=== PATIENT | female | born 1950 | race Caucasian/White ===

== ENCOUNTER 2016-06-23 11:51 | Emergency (ER) | payer MEDICARE, MEDICAID ==
[~2016-06-23] VITALS: Ht 157.5 cm; Wt 95.5 kg
[~2016-06-23 11:51] MED LIST: ALBU8.5H4 IH; ASPI-973 PO; BUDE0.5A2 IH; BUSP10TA2 PO; CLOB15CR3 TOP; DILT300C35 PO; FENO145T19 PO; FLUT9.9S NS; GABA300C PO; GLBR5T PO; IPRA3AMP IH; KEN25CR EXT; LEVO50TA39 PO; LOVA40TA PO; METH10TA2 PO; MONT10TA20 PO; OXYB10TA PO; PANT40TA2 PO; POTA10CA42 PO; PRE10 PO; PRE20 PO; PROP20TA5 PO; QUET25TA PO; ROPI2TAB2 PO; TIZA4CAP8 PO; TRAM50TA2 PO; VALA500T2 PO; VENL75CA PO
[2016-06-23 12:04] VITALS: BP 126/92; PULSE 109; RESP 19; O2SAT 94
--- NOTE | 2016-06-23 12:14 | ED.REPORT ---
HPI-Abd Pain F 40 and Over Date of Service Jun 23, 2016 ED Provider: The patient is a 66 year old female with history of COPD, diabetes mellitus type II, hypertension, morbid obesity, dyslipidemia, who was brought to the emergency department by EMS for diarrhea that began last night. Her last episode of diarrhea was prior to arrival. She also complains of acid reflux, nausea, and vomiting. She was recently started on Cephalexin for bronchitis and to prevent infection from a recent toenail procedure. She denies fever, chills, chest pain, shortness of breath or cough. She denies history of clostridium difficile. Nursing Notes Stated Complaint: DIARRHEA Chief Complaint: General Complaint Nursing Notes Reviewed: Yes Allergies: Coded Allergies: TAPE (Verified Allergy, Severe, BLISTERS, 04/02/15) zafirlukast (Verified Allergy, Severe, UNCONFIRMED, 04/02/15) Penicillins (Verified Allergy, Unknown, OK WITH CEPHALOSPORINS, 04/02/15) codeine (Verified Allergy, Unknown, 04/02/15) fluticasone (Verified Allergy, Unknown, 04/02/15) lisinopril (Verified Allergy, Unknown, 04/02/15) Scheduled Aspirin (Aspirin) 81 Mg Tablet 81 MG PO DAILY Budesonide Neb Soln (Budesonide Neb Soln) 0.5 Mg/2 Ml Ampul.neb 0.5 MG IH BID Buspirone (Buspirone) 10 Mg Tablet 10 MG PO DAILY Diltiazem ER (Cardizem CD) 300 Mg Cap.er.24h 300 MG PO DAILY Fenofibrate Nanocrystallized (Fenofibrate) 145 Mg Tablet 145 MG PO DAILY Gabapentin (Neurontin) 300 Mg Capsule 300 MG PO BID Glyburide (Glyburide) 5 Mg Tab 5 MG PO BIDAC Ipratropium/Albuterol Sulfate (Iprat-Albut 0.5-3(2.5) mg/3 mL Inhalant Soln) 3 Ml Ampul.neb 3 ML IH QID Levothyroxine (Levoxyl) 50 Mcg Tablet 50 MCG PO DAILY Lovastatin (Lovastatin) 40 Mg Tablet 40 MG PO HS Methylphenidate (Ritalin) 10 Mg Tablet 10 MG PO BID Montelukast (Singulair) 10 Mg Tablet 10 MG PO HS Oxybutynin Chloride ER (Oxybutynin Chloride ER) 10 Mg Tab.er.24 10 MG PO DAILY Pantoprazole DR (Protonix) 40 Mg Tablet 40 MG PO DAILY Potassium Chloride (Potassium Chloride) 10 Meq Capsule.er 10 MEQ PO DAILY TAKE WITH FOOD Prednisone (PredniSONE) 10 Mg Tablet 10 MG PO every other day Prednisone (PredniSONE) 20 Mg Tablet 20 MG PO DAILY Propranolol HCl (Propranolol HCl) 20 Mg Tablet 20 MG PO BID Quetiapine Fumarate (Seroquel) 25 Mg Tablet 50 MG PO HS Ropinirole (Requip) 2 Mg Tablet 1-2 MG PO HS Tizanidine (Tizanidine) 4 Mg Capsule 4 MG PO TID Tramadol (Tramadol) 50 Mg Tablet 100 MG PO BID Triamcinolone Acet (Triamcinolone Acetonide Cream) 1 Applic/0.25 Gm Cr 1 APPLIC EXT BID Valacyclovir HCl (Valtrex) 500 Mg Tablet 500 MG PO DAILY Venlafaxine ER (Effexor XR) 75 Mg Cap.er.24h 75 MG PO TID Scheduled PRN Albuterol HFA (Albuterol HFA) 8.5 Gm Hfa.aer.ad 1-2 PUFF IH Q4 PRN PRN For Shortness of Breath Clobetasol Propionate/Emoll (Clobetasol Emollient 0.05% Crm) 15 Gm Cream..g. 1 APPL TOP BID PRN PRN rash Miscellaneous Medications Fluticasone Propionate (Flonase Allergy Relief) 50 Mcg/Actuation [place].susp 9.9 ML NS General Time Seen by MD: 12:13 Chief Complaint Diarrhea moderate Hx Obtained From: Patient, EMS Arrived By: Ambulance Sudden in Onset?: Yes Onset Occurred: Yesterday Symptom Duration: Since onset Progression since Onset: Intermittent Location: : Diffuse Quality: Painful Radiation: : Does not radiate Severity: Current: Mild Severity: Maximum: Moderate Recent Healthcare: No recent hospitalization, Recent doctor visit Similar Sx Previous: No Past Medical History Past Medical History 1. 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 2. Diabetes mellitus Type 2 with diabetic neuropathy--not requiring insulin 3. Hypertension 4. Morbid obesity with BMI 38.1 5. History of aspiration pneumonia 6. Chronic gastritis 7. Dyslipidemia 8. Depression & anxiety 9. History kidney stones 10. Hospitalization in August due to acute hypoxemic respiratory failure. 11. Obstructive sleep apnea on CPAP 12. Idiopathic tremors 13. Small bowel obstruction 14. Acquired cognitive dysfunction 15. Depression and insomnia Past Surgical History 1. Total hysterectomy and bilateral oophorectomy 2. Right Hip replacement, 3. Cholecystectomy 4. Tonsillectomy 5. Thyroidectomy Smoking History Never Smoker Social History Alcohol Use: Denies alcohol use Drug Use: Denies drug use Other Social History: Local resident Review of Systems +acid reflux Constitutional: Denies: Chills, Fever Respiratory: Denies: Non-productive cough, Shortness of breath Cardiovascular: Denies: Chest pain GI: Reports: Abdominal pain, Diarrhea, Nausea, Vomiting Complete sys rev & neg: except as marked. Physical Exam Vital Signs Vital Signs (First) Date Time Temp Pulse Resp B/P Pulse Ox O2 Delivery O2 Flow Rate FiO2 06/23/16 12:04 36.9 109 19 126/92 94 Room Air Initial VS: Reviewed Head / Eyes: Atraumatic, Normocephalic, PERRL ENT: Mucous membranes moist, Conjunctiva normal, No scleral icterus Neck: Supple, Non-tender, Full range of motion Lymphatic: No lymphadenopathy Extremities: Vascular intact, Neuro intact, No swelling, No tenderness Skin: Warm, Dry, No cyanosis Neurologic: Alert, Oriented, Nonfocal Psychiatric: Mood/affect normal, Behavior normal, Normal thought content General/Constitutional: Awake, Alert Respiratory / Chest: Breath sounds = bilat, No respiratory distress, No rales, No rhonchi, No wheezing, No stridor Diminished Breath Sounds: Positive: Decreased bilateral Cardiovascular: Heart rate NL, Regular rhythm, Heart sounds NL, Peripheral circulation NL Abdomen: Atraumatic, Soft, Non-tender, McBurney's non-tender, No guarding, No rebound, BS normoactive, No distention, No hernia, No palpable mass, No pulsatile mass Back: Inspection NL, Full range of motion, Painless range of motion Interpretation & Diagnostics Lab Results Interpretation Result Diagram: 06/23/16 1325 06/23/16 1325 Test 06/23/16 13:25 White Blood Count 8.4th/mm3 (3.8-10.1) Red Blood Count 5.12mil/mm3 (3.90-5.20) Hemoglobin 15.2g/dL (12.0-15.6) Hematocrit 46.6% (35.0-46.0) Mean Corpuscular Volume 91.0fL (81-100) Mean Corpuscular Hemoglobin 29.7pg (27.0-35.0) Mean Corpuscular Hemoglobin Concent 32.6% (32.0-37.0) Red Cell Distribution Width 13.6% (12.3-15.4) Platelet Count 232bil/L (150-400) Neutrophils (%) (Auto) 84.5% (40-74) Lymphocytes (%) (Auto) 6.7% (14-46) Monocytes (%) (Auto) 6.8% (4-12) Eosinophils (%) (Auto) 1.5% (0-5) Basophils (%) (Auto) 0.1% (0-3) Sodium Level 137mEq/L (134-144) Potassium Level 3.5mEq/L (3.5-5.2) Chloride Level 97mEq/L (97-108) Carbon Dioxide Level 27mmol/L (18-29) Blood Urea Nitrogen 30mg/dL (8-27) Creatinine 0.76mg/dL (0.57-1.00) Estimat Glomerular Filtration Rate 109mL/min (>59) Glucose Level 252mg/dL (60-99) Calcium Level 8.2mg/dL (8.5-10.1) Total Bilirubin 1.6mg/dL (0.0-1.2) Aspartate Amino Transf (AST/SGOT) 145U/L (0-50) Alanine Aminotransferase (ALT/SGPT) 70U/L (0-32) Alkaline Phosphatase 61U/L (25-165) Total Protein 6.2g/dL (6.4-8.4) Albumin 3.5g/dL (3.4-5.0) Re-Eval/Medical Decision Med Decision/Clinical Course Laboratory data and vital signs commenced. With volume depletion. This is also consistent with her history of vomiting and diarrhea. She has had no vomiting nor diarrhea while in the emergency department. I am concerned of the possibility of C. difficile colitis given the recent antibiotics. I recommended close outpatient follow-up. Outpatient order for C. difficile is sent with the patient and materials to collect a specimen. I told her to continue her cephalexin for now because her understanding is that she is taking it for a respiratory based infection. Source of Hx: Old records, EMS, Family Re-Evaluation/Progress : Time of Eval: 14:04 Re-Evaluation/Progress Note: Rechecked the patient. Discussed results, diagnosis, and plan for discharge. All questions were addressed. Counseled Regarding: Diagnosis, Lab results, Need for follow-up, When/why to return to ED Discharge & Departure Primary Impression: Diarrhea Additional Impressions: Dehydration Vomiting Vomiting type: unspecified Vomiting Intractability: non-intractable Nausea presence: with nausea Qualified Code: R11.2 - Nausea with vomiting, unspecified Disposition: Home Discharge Condition All VS Reviewed: Yes Condition: Stable Patient Instructions: Acute Diarrhea (ED), Acute Nausea and Vomiting (ED), Dehydration (ED) Additional Instructions: Thank you for entrusting us with your care today. You have modest laboratory abnormalities that need to be rechecked in a few days. We have sent you home with the materials to collect a stool sample. Bring this back to the lab when you have provided a sample. Use Zofran as needed for nausea. Make sure to drink plenty of fluids as tolerated. Continue the cephalexin as previously prescribed. Followup with your regular doctor next week for recheck. Return to the emergency department for any new or concerning symptoms. Referrals: Margaret Gilbert (PCP) Lawrence Attestation Portions of this note were transcribed by Porsche Mckeon. I, Dr. Khadar Felix personally performed the history, physical exam and medical decision-making; I reviewed and confirmed the accuracy of the information in the transcribed note. Signed by: Lawrence Mas, 06/23/2015 and 1415. copies to: Margaret Gilbert Kirk H MD Jun 23, 2016 12:13 Porsche Mckeon Jun 23, 2016 12:18
[2016-06-23] MEDS ORDERED: Pantoprazole 4 mg/mL 10 mL Inj IVPUSH ONE (12:20)
[2016-06-23] MEDS ORDERED: 0.9% Sodium Chloride 1,000 ML IV ONE (12:20)
[2016-06-23 13:48] LABS: BASOPHILS % (AUTO) 0.1 % (0-3); EOSINOPHILS % (AUTO) 1.5 % (0-5); MONOCYTES % (AUTO) 6.8 % (4-12); Mean Corpuscular Hemoglobin 29.7 pg (27.0-35.0); NEUTROPHILS % (AUTO) 84.5 % (40-74); Platelet Count 232 bil/L (150-400)
[2016-06-23 14:01] VITALS: PULSE 109; RESP 26; O2SAT 94
[2016-06-23] MEDS ORDERED: ONDA4TAB9 PO (14:17)
[2016-06-23 14:48] VITALS: BP 136/88; PULSE 105; RESP 14; O2SAT 94
[2016-06-23 15:20] VITALS: BP 136/88; PULSE 105; RESP 14; O2SAT 94
== END 2016-06-23 15:22 | disposition home or self-care (01) ==
LOC: SED 11:51
DX: R19.7 Diarrhea, unspecified (principal); E86.0 Dehydration; R11.2 Nausea with vomiting, unspecified; J44.9 Chronic obstructive pulmonary disease, unspecified; I10 Essential (primary) hypertension; E11.40 Type 2 diabetes mellitus with diabetic neuropathy, unspecified; Z79.82 Long term (current) use of aspirin; Z88.0 Allergy status to penicillin; Z88.5 Allergy status to narcotic agent; Z88.8 Allergy status to other drugs, medicaments and biological substances
CPT/HCPCS: 36415; 80053; 85025; 96361; 96374; 99284; J7030

== ENCOUNTER 2017-02-16 10:00 | Emergency (ER) | payer MEDICARE, MEDICAID ==
[~2017-02-16] VITALS: Ht 154.9 cm; Wt 97.7 kg
[~2017-02-16 10:00] MED LIST changes: +ONDA4TAB9 PO
--- NOTE | 2017-02-16 10:01 | ED.REPORT ---
HPI-General Illness Date of Service Feb 16, 2017 ED Provider: Dr. Amador The pt is a 66 y/o female with a hx of COPD, diabetes mellitus type II, hypertension, and dyslipidemia who presents to the ED complaining of hyperglycemia, onset today. She called her PCP's office and was advised to call and go to the ED. Associated sx include increased urination, fatigue, somnolence (which has now resolved). She also reports a gradually improving abscess on her right forearm. She denies abdominal pain, vomiting, diarrhea, and dysuria. Nursing Notes Stated Complaint: SLEEPY Nursing Notes Reviewed: Yes Allergies: Coded Allergies: TAPE (Verified Allergy, Severe, BLISTERS, 02/16/17) zafirlukast (Verified Allergy, Severe, UNCONFIRMED, 02/16/17) Penicillins (Verified Allergy, Unknown, OK WITH CEPHALOSPORINS, 02/16/17) codeine (Verified Allergy, Unknown, 02/16/17) fluticasone (Verified Allergy, Unknown, 02/16/17) lisinopril (Verified Allergy, Unknown, 02/16/17) Scheduled Aspirin (Aspirin) 81 Mg Tablet 81 MG PO DAILY Budesonide Neb Soln (Budesonide Neb Soln) 0.5 Mg/2 Ml Ampul.neb 0.5 MG IH BID Buspirone (Buspirone) 10 Mg Tablet 10 MG PO DAILY Diltiazem ER (Cardizem CD) 300 Mg Cap.er.24h 300 MG PO DAILY Fenofibrate Nanocrystallized (Fenofibrate) 145 Mg Tablet 145 MG PO DAILY Gabapentin (Neurontin) 300 Mg Capsule 300 MG PO BID Glyburide (Glyburide) 5 Mg Tab 5 MG PO BIDAC Ipratropium/Albuterol Sulfate (Iprat-Albut 0.5-3(2.5) mg/3 mL Inhalant Soln) 3 Ml Ampul.neb 3 ML IH QID Levothyroxine (Levoxyl) 50 Mcg Tablet 50 MCG PO DAILY Lovastatin (Lovastatin) 40 Mg Tablet 40 MG PO HS Methylphenidate (Ritalin) 10 Mg Tablet 10 MG PO BID Montelukast (Singulair) 10 Mg Tablet 10 MG PO HS Oxybutynin Chloride ER (Oxybutynin Chloride ER) 10 Mg Tab.er.24 10 MG PO DAILY Pantoprazole DR (Protonix) 40 Mg Tablet 40 MG PO DAILY Potassium Chloride (Potassium Chloride) 10 Meq Capsule.er 10 MEQ PO DAILY TAKE WITH FOOD Prednisone (PredniSONE) 10 Mg Tablet 10 MG PO every other day Prednisone (PredniSONE) 20 Mg Tablet 20 MG PO DAILY Propranolol HCl (Propranolol HCl) 20 Mg Tablet 20 MG PO BID Quetiapine Fumarate (Seroquel) 25 Mg Tablet 50 MG PO HS Ropinirole (Requip) 2 Mg Tablet 1-2 MG PO HS Tizanidine (Tizanidine) 4 Mg Capsule 4 MG PO TID Tramadol (Tramadol) 50 Mg Tablet 100 MG PO BID Triamcinolone Acet (Triamcinolone Acetonide Cream) 1 Applic/0.25 Gm Cr 1 APPLIC EXT BID Valacyclovir HCl (Valtrex) 500 Mg Tablet 500 MG PO DAILY Venlafaxine ER (Effexor XR) 75 Mg Cap.er.24h 75 MG PO TID Scheduled PRN Albuterol HFA (Albuterol HFA) 8.5 Gm Hfa.aer.ad 1-2 PUFF IH Q4 PRN PRN For Shortness of Breath Clobetasol Propionate/Emoll (Clobetasol Emollient 0.05% Crm) 15 Gm Cream..g. 1 APPL TOP BID PRN PRN rash Ondansetron ODT (Zofran ODT) 4 Mg Tablet 4 MG PO Q4H PRN PRN For Nausea Miscellaneous Medications Fluticasone Propionate (Flonase Allergy Relief) 50 Mcg/Actuation [place].susp 9.9 ML NS General Time Seen by MD: 10:01 Chief Complaint Other (hyperglycemia) Hx Obtained From: Patient Arrived By: Ambulance Sudden in Onset?: Yes Onset Occurred: 1 - 4 hours ago Symptom Duration: Since onset Severity: Current: No pain currently Severity: Maximum: No pain Recent Healthcare: No recent doctor visit Past Medical History Past Medical History 1. 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 2. Diabetes mellitus Type 2 with diabetic neuropathy--not requiring insulin 3. Hypertension 4. Morbid obesity with BMI 38.1 5. History of aspiration pneumonia 6. Chronic gastritis 7. Dyslipidemia 8. Depression & anxiety 9. History kidney stones 10. Hospitalization in August due to acute hypoxemic respiratory failure. 11. Obstructive sleep apnea on CPAP 12. Idiopathic tremors 13. Small bowel obstruction 14. Acquired cognitive dysfunction 15. Depression and insomnia Past Surgical History 1. Total hysterectomy and bilateral oophorectomy 2. Right Hip replacement, 3. Cholecystectomy 4. Tonsillectomy 5. Thyroidectomy Smoking History Never Smoker Social History Alcohol Use: Denies alcohol use Drug Use: Denies drug use Other Social History: Local resident Review of Systems Reports: hyperglycemia Reports: somnolence (resolved) Reports: abscess on her right forearm Full Review of Systems Constitutional: Reports: Fatigue GI: Denies: Abdominal pain, Diarrhea, Vomiting Female: Reports: Urination increased, Denies: Dysuria Complete sys rev & neg: except as marked. Physical Exam Vital Signs Vital Signs Date Time Temp Pulse Resp B/P Pulse Ox O2 Delivery O2 Flow Rate FiO2 02/16/17 13:15 36.7 80 16 152/87 96 Room Air 02/16/17 11:22 36.7 81 20 147/87 97 Room Air 02/16/17 10:03 36.6 81 16 133/92 95 Room Air Initial VS: Reviewed Head / Eyes: Atraumatic, Normocephalic Neck: Supple, Non-tender, Full range of motion Abdomen / GI: Soft, Non-tender, No guarding, No rebound, No distention Extremities: Vascular intact, Neuro intact, No swelling, No tenderness Skin: Warm, Dry, No cyanosis Neurologic: Alert, Oriented, Nonfocal General/Constitutional: Awake, Alert, No acute distress, Cooperative Appearance / Presentation: Positive: Obese Respiratory / Chest: Atraumatic, No rales, No rhonchi, No wheezing Diminished Breath Sounds: Positive: Decreased bilateral Cardiovascular: Heart rate NL, Regular rhythm, Heart sounds NL, No gallop, No murmurs, No rubs No lower extremity edema Interpretation & Diagnostics Lab Results Interpretation Result Diagram: 02/16/17 1012 02/16/17 1012 Test 02/16/17 10:00 02/16/17 10:12 02/16/17 12:00 Urine Color Yellow (YELLOW) Urine Appearance Hazy (CLEAR,HAZY) Urine pH 5.5 (5.0-8.0) Urine Specific [place] 1.020 (1.003-1.035) Urine Protein Negativemg/dL (NEG,TRACE) Urine Glucose (UA) 1000mg/dL (NEGATIVE) Urine Ketones Negativemg/dL (NEGATIVE) Urine Occult Blood Negative (NEGATIVE) Urine Nitrite Negative (NEGATIVE) Urine Bilirubin Negative (NEGATIVE) Urine Urobilinogen Normalmg/dL (NORMAL) Urine Leukocyte Esterase Negative (NEGATIVE) Urine RBC 0-2/hpf (0-2) Urine WBC 0-5/hpf (0-5) Urine Epithelial Cells Occasional/hpf (NONE-MOD) Urine Crystals None seen (NONE SEEN) Urine Bacteria None/hpf (NONE-FEW) Urine Hyaline Casts 5/20/lpf (NONE) Urine Granular Casts None seen (NONE SEEN) Urine Waxy Casts None seen (NONE SEEN) Urine Red Blood Cell Casts None seen (NONE SEEN) Urine White Blood Cell Casts None seen (NONE SEEN) Urine Mucus Present (None Seen) Urine Trichomonas None seen (NONE SEEN) Urine Yeast None (NONE SEEN) Urinalysis Comment None Urine Culture Reflexed Not indicated White Blood Count 9.2th/mm3 (3.8-10.1) Red Blood Count 4.48mil/mm3 (3.90-5.20) Hemoglobin 12.3g/dL (12.0-15.6) Hematocrit 39.6% (35.0-46.0) Mean Corpuscular Volume 88.4fL (81-100) Mean Corpuscular Hemoglobin 27.5pg (27.0-35.0) Mean Corpuscular Hemoglobin Concent 31.1% (32.0-37.0) Red Cell Distribution Width 13.9% (12.3-15.4) Platelet Count 198bil/L (150-400) Neutrophils (%) (Auto) 77.8% (40-74) Lymphocytes (%) (Auto) 14.2% (14-46) Monocytes (%) (Auto) 6.3% (4-12) Eosinophils (%) (Auto) 1.3% (0-5) Basophils (%) (Auto) 0.2% (0-3) Sodium Level 135mEq/L (134-144) Potassium Level 4.8mEq/L (3.5-5.2) Chloride Level 97mEq/L (97-108) Carbon Dioxide Level 20mmol/L (18-29) Blood Urea Nitrogen 21mg/dL (8-27) Creatinine 0.77mg/dL (0.57-1.00) Estimat Glomerular Filtration Rate 107mL/min (>59) Glucose Level 444mg/dL (60-99) Calcium Level 8.9mg/dL (8.5-10.1) Magnesium Level 1.8mg/dL (1.6-2.6) Total Bilirubin 0.9mg/dL (0.0-1.2) Aspartate Amino Transf (AST/SGOT) 34U/L (0-50) Alanine Aminotransferase (ALT/SGPT) 24U/L (0-32) Alkaline Phosphatase 73U/L (25-165) Troponin T 0.010ug/L (0.0-0.011) Total Protein 6.5g/dL (6.4-8.4) Albumin 3.7g/dL (3.4-5.0) Lactic Acid Level 1.7mmol/L (0.4-2.0) ECG Interpretation ECG Interpretation: Normal sinus rhythm. Rate 78. Prolonged QT No acute ST changes. Time: 10:51 Interpreted by: ED physician X-Ray Chest Interpretation Chest Xray Interpretation: IMPRESSION: No acute cardiopulmonary abnormality Dictated by: Oz Hager M.D. on 02/16/2017 at 10:44 Approved by: Oz Hager M.D. on 02/16/2017 at 10:44 View: Portable, 1 view Interpretation / Wet Read by: Interpret - Radiologist Re-Eval/Medical Decision Med Decision/Clinical Course Hyperglycemia without evidence of DKA or obvious infection, the patient is feeling better after IV hydration, wishes to go home. Recommend increasing basal insulin and following up with primary care for a more aggressive diabetic regimen. Return and follow-up precautions given. Source of Hx: Old records Time of Eval: 11:37 Re-Evaluation/Progress Note: Rechecked pt. Discussed X-ray results. The pt understands. All questions answered. Time of Eval: 12:18 Re-Evaluation/Progress Note: Rechecked pt. She reports feeling better. Time of Eval: 12:58 Patient Status: Condition improved Re-Evaluation/Progress Note: Rechecked pt. .Discussed lab results, imaging results, diagnosis and plan to discharge. Pt understands and agrees with the plan. F/U instruction and RTER warning given. All questions addressed Counseled Regarding: Diagnosis Discharge & Departure Primary Impression: Hyperglycemia Disposition: Home Discharge Condition All VS Reviewed: Yes Condition: Stable Additional Instructions: Increase your evening insulin to 21 units. Call your doctor today for a close follow-up regarding management of your diabetes. Return to the ER as needed for concerning signs or symptoms Referrals: Margaret Gilbert (PCP) Scribe Attestation Portions of this note were transcribed by Sherman Thomson. I,, personally performed the history,physical exam and medical decision-making;I reviewed and confirmed the accuracy of the information in the transcribed note. Signed by Lawrence Lepe. 02/16/17 copies to: Margaret Gilbert Timothy S DO Feb 16, 2017 10:01 Sherman Thomson Feb 16, 2017 10:12
[2017-02-16 10:03] VITALS: BP 133/92; PULSE 81; RESP 16; O2SAT 95
[2017-02-16] MEDS ORDERED: 0.9% Sodium Chloride 1,000 ML IV ONE (10:09)
[2017-02-16 10:19] LABS: BASOPHILS % (AUTO) 0.2 % (0-3); EOSINOPHILS % (AUTO) 1.3 % (0-5); MONOCYTES % (AUTO) 6.3 % (4-12); Mean Corpuscular Hemoglobin 27.5 pg (27.0-35.0); Mean Corpuscular Volume 88.4 fL (81-100); NEUTROPHILS % (AUTO) 77.8 % (40-74); Platelet Count 198 bil/L (150-400)
[2017-02-16 10:41] LABS: TROPONIN T 0.01 ug/L (0.0-0.011)
--- NOTE | 2017-02-16 10:46 | DRSVH ---
PROCEDURE: X-RAY CHEST ONE VIEW, PORTABLE ([id number]) INDICATIONS: weakness TECHNIQUE: One view of the chest was acquired. COMPARISON: 12/24/2016 FINDINGS: Surgical changes and devices: Surgical clips right upper quadrant. Lungs and pleura: No pleural effusions or pneumothorax. Lungs are clear. Mediastinum: Mediastinal contours appear normal. Heart size is normal. Bones and chest wall: No suspicious bony lesions. Overlying soft tissues appear unremarkable. IMPRESSION: No acute cardiopulmonary abnormality Dictated by: Oz Hager M.D. on 02/16/2017 at 10:44 Approved by: Oz Hager M.D. on 02/16/2017 at 10:44
[2017-02-16 10:52] LABS: Magnesium 1.8 mg/dL (1.6-2.6)
[2017-02-16 11:18] LABS: APPEARANCE,URINE HAZY (CLEAR,HAZY); COLOR,URINE YELLOW (YELLOW); OCCULT BLOOD,URINE NEGATIVE (NEGATIVE); PH,URINE 5.5 (5.0-8.0); UROBILINOGEN,URINE NORMAL (NORMAL)
[2017-02-16] MEDS ORDERED: 0.9% Sodium Chloride 500 ML IV ONE (11:20)
[2017-02-16 11:22] VITALS: BP 147/87; PULSE 81; RESP 20; O2SAT 97
[2017-02-16] MEDS ORDERED: Insulin Human REGular-Omnicell 100 Unit/mL SUBQ ONE (12:35)
[2017-02-16 13:15] VITALS: BP 152/87; PULSE 80; RESP 16; O2SAT 96
== END 2017-02-16 13:17 | disposition home or self-care (01) ==
LOC: SED 10:00 → EDBD 10:00 → SED 13:17
DX: E11.65 Type 2 diabetes mellitus with hyperglycemia (principal); J44.9 Chronic obstructive pulmonary disease, unspecified; I10 Essential (primary) hypertension; E78.5 Hyperlipidemia, unspecified; E11.40 Type 2 diabetes mellitus with diabetic neuropathy, unspecified; F41.9 Anxiety disorder, unspecified; F32.9 Major depressive disorder, single episode, unspecified; R33.9 Retention of urine, unspecified; Z88.8 Allergy status to other drugs, medicaments and biological substances; Z87.01 Personal history of pneumonia (recurrent); Z87.442 Personal history of urinary calculi; Z88.5 Allergy status to narcotic agent; Z79.82 Long term (current) use of aspirin; Z88.1 Allergy status to other antibiotic agents
CPT/HCPCS: 36415; 51701; 71010; 80053; 81000; 82948; 83605; 83735; 84484; 85025; 93005; 96360; 96361; 96372; 99285; J1815; J7030; J7040